=== PATIENT | male | born 1965 | race African-American/Black ===

== ENCOUNTER → 2017-10-04 | Outpatient (CLI) | payer MEDICARE, MEDICAID ==
[~2017-10-04] MED LIST: ADULT LOW DOSE81 MG PO; ALLOPURINOL 10100 M1 PO; BACTROBAN CREAM30 G1 TOP; CARDURA1 MG PO; CELEXA40 MG PO; CENTRUM SILVER1 EAC1 PO; FISH OIL 1,0001 EAC5 PO; HUMALOG100 UNIT/1 SQ; KEFLEX500 MG PO; LANTUS SC; LASIX 80 MG TAB80 MG PO; LIPITOR20 MG PO; LISINOPRIL5 MG PO; LYRICA 50 MG50 M1 PO; LYRICA 50 MG50 MG PO; MAG-OX 400 TAB400 M1 PO; MULTIVITAMIN W1 EAC5 PO; MYFORTIC PO; NEXIUM40 MG PO; NIASPAN 500 MG500 M1 PO; NORVASC5 MG PO; PHOSLO667 MG PO; PLAVIX 75 MG TA75 M1 PER TUBE; PREDNISONE 5 MG5 M1; PROGRAF1 MG PO; SYNTHROID 0.10.1 M1 PO; TRANDATE 200 M200 M1 PO
== END ==
LOC: M.MRI 17:03
DX: M16.11 Unilateral primary osteoarthritis, right hip (principal); M47.26 Other spondylosis with radiculopathy, lumbar region

== ENCOUNTER → 2019-03-29 | Outpatient (CLI) | payer MEDICARE, MEDICAID ==
[2019-03-29 13:09] VITALS: BP 132/89
[2019-03-29 14:05] VITALS: BP 140/86
--- NOTE | 2019-03-29 14:12 | NUR ---
ARRIVED AMBULATORY. MADE SELF COMFORTABLE IN RECLINER. HISTORY REVIEWED. INFUSION COMPLETED AND TOLERATED WELL. DISCHARGE REVIEWED. DENIES QUESTIONS OR NEEDS.
== END ==
LOC: M.INFUS 04:45
DX: D50.8 Other iron deficiency anemias (principal); N18.3 Chronic kidney disease, stage 3 (moderate)

== ENCOUNTER → 2019-04-05 | Outpatient (CLI) | payer MEDICARE, MEDICAID ==
[2019-04-05 13:15] VITALS: BP 151/97
[2019-04-05 13:45] VITALS: BP 148/90
== END ==
LOC: M.INFUS 04:33
DX: D50.8 Other iron deficiency anemias (principal); N18.3 Chronic kidney disease, stage 3 (moderate)

== ENCOUNTER → 2019-04-25 | Outpatient (CLI) | payer MEDICARE, MEDICAID ==
[2019-04-25 11:15] VITALS: BP 188/109
--- NOTE | 2019-04-25 13:29 | NUR ---
ARRIVED AMBULATORY. MADE SELF COMFORTABALE IN RECLINER. BASED ON CURRENT LABS ON ORDER PROCRIT INJECTION NEEDED. INJECTION COMPLETED AND TOELRATED WELL. DENIES ADVERSE REACTION TO PRIOR INJECTION OF SAME. DENIES NEEDS AT DISCHARGE.
== END ==
LOC: M.INFUS 05:39
DX: N18.3 Chronic kidney disease, stage 3 (moderate) (principal); D63.1 Anemia in chronic kidney disease

== ENCOUNTER → 2019-05-09 | Outpatient (CLI) | payer MEDICARE, MEDICAID ==
[2019-05-09 13:10] VITALS: BP 185/99
== END ==
LOC: M.INFUS 05:03
DX: N18.3 Chronic kidney disease, stage 3 (moderate) (principal); D63.1 Anemia in chronic kidney disease

== ENCOUNTER → 2019-05-24 | Outpatient (CLI) | payer MEDICARE, MEDICAID ==
[2019-05-24 13:05] VITALS: BP 132/74
== END ==
LOC: M.INFUS 05:53
DX: N18.3 Chronic kidney disease, stage 3 (moderate) (principal); D63.1 Anemia in chronic kidney disease

== ENCOUNTER → 2019-06-07 | Outpatient (CLI) | payer MEDICARE, MEDICAID ==
--- NOTE | 2019-06-07 13:30 | NUR ---
ARRIVED AMBULATORY. LABS DRAWN ADN RESULTS EVALUATED. HGB 11.4 AND PER STANDING ORDER NO INJECTION OF PROCRIT NEEDED. PT UDATED. VOICED UNDERSTANDING AND AGREED. DENIES QUESTIONS OR NEEDS AT DISCHARGE.
== END ==
LOC: M.INFUS 08:15
DX: N18.3 Chronic kidney disease, stage 3 (moderate) (principal); D63.1 Anemia in chronic kidney disease

== ENCOUNTER → 2019-08-08 | Outpatient (CLI) | payer MEDICARE, MEDICAID ==
[2019-08-08 13:45] VITALS: BP 162/90; BP 98/51
--- NOTE | 2019-08-08 14:04 | NUR ---
INFUSION COMPELTED AND TOELRATED WELL. DENIES QUESTIONS OR NEEDS AT DISCHARGE.
== END ==
LOC: M.INFUS 12:30
DX: D50.9 Iron deficiency anemia, unspecified (principal)

== ENCOUNTER → 2019-08-15 | Outpatient (CLI) | payer MEDICARE, MEDICAID ==
[2019-08-15 12:55] VITALS: BP 132/80
[2019-08-15 13:25] VITALS: BP 122/74
== END ==
LOC: M.INFUS 02:10
DX: D50.9 Iron deficiency anemia, unspecified (principal)

== ENCOUNTER → 2021-03-25 | Outpatient (CLI) | payer MEDICARE, MEDICAID | LOC: M.RAD 14:11 | PROVIDERS: ATTEND Internal Medicine Nephrology | DX: J90 Pleural effusion, not elsewhere classified (principal) ==